=== PATIENT | female | born 1985 | race Caucasian/White ===

== ENCOUNTER 2019-04-16 10:30 | Emergency (ER) | payer MEDICAID ==
[~2019-04-16] VITALS: Ht 152.4 cm; Wt 71.8 kg
[~2019-04-16 10:30] MED LIST: HYDR-3980 PO; IBUP800T48 PO; NAPR-985 PO; OFLO5DRO7 LEFT EAR
[2019-04-16 10:33] VITALS: BP 134/70; PULSE 103; RESP 18; Ht 152.4 cm; Wt 71.8 kg
== END 2019-04-16 12:43 | disposition home or self-care (01) ==
LOC: FTE 10:30
DX: M77.8 Other enthesopathies, not elsewhere classified (principal); I10 Essential (primary) hypertension
CPT/HCPCS: 29125; 73110; Z7502